=== PATIENT | male | born 1965 | race Caucasian/White ===

== ENCOUNTER 2019-10-01 15:31 | Emergency (ER) | payer OTHER, SELFPAY ==
[2019-10-01 15:46] VITALS: BP 154/87; PULSE 80; RESP 18; TEMP 36.8; O2SAT 96; BMI 23.7
--- NOTE | 2019-10-01 16:25 | PC.NURSE ---
patient states the sensation feels warm
--- NOTE | 2019-10-01 18:03 | ED_ITS ---
HPI - Back Pain/Injury <MATT El - Last Filed: 10/02/19 00:12> General Chief Complaint: Back Pain/Injury Stated Complaint: BACK PAIN Time Seen by Provider: 10/01/19 16:42 Source: patient Mode of arrival: Wheelchair Limitations: no limitations History of Present Illness HPI Narrative: This is a 53-year-old gentleman, smoker, has history of L5 herniated disc who presents to ED with family member with chief complain of nontraumatic left lower back pain radiating to buttock, anterior groin and thigh up to knee. Patient states herniated disc occurred 2 years ago and treated with nonsurgical intervention. Patient states patient was crawling and on his knees and arms and had reached out with right arm when he felt sudden pain on Friday. Patient reports the next 24 hours. Patient got worse and he was evaluated in would be General Emergency room yesterday and treated with Flexeril, Percocet, ibuprofen and discharged to home. Patient states his pain is actually a bit better today and able to bear weight for a very short period due to pain. Patient denies incontinence for stool and urine. Patient denies fever, chills, nausea or vomiting, rash on his back. Patient denies weakness or numbness on legs. Patient reports ambulation with leaning forward and bending/flexing left leg improves pain. He has been leaning towards right side of body to ambulate due to pain. Patient was evaluated by chiropractor today and suggested to get evaluated in [facility] Emergency room. Related Data Home Medications Medication Instructions Recorded Confirmed cyclobenzaprine mg 10/01/19 10/01/19 ibuprofen 10/01/19 10/01/19 oxycodone-acetaminophen 10/01/19 10/01/19 Previous Rx's Medication Instructions Recorded oxycodone-acetaminophen [Percocet] 1 tab PO TID PRN #5 tab 10/01/19 prednisone 40 mg PO DAILY 4 Days tab 10/01/19 Allergies Allergy/AdvReac Type Severity Reaction Status Date / Time Penicillins Allergy Verified 10/01/19 15:46 Review of Systems <MATT El - Last Filed: 10/02/19 00:12> Review of Systems Narrative: General: Denies fever, chills, fatigue, malaise, sweats. HEENT: Denies sinus pain, ear pain, sore throat, difficulty swallowing, dizziness. Respiratory: Denies dyspnea, cough, wheezing, hemoptysis, sputum. Cardiovascular: Denies chest pain, palpitations, orthopnea, edema. Gastrointestinal: Denies nausea, vomiting, abdominal pain, diarrhea, constipation, melena. : Denies dysuria, frequency, incontinence, hematuria, urinary retention. Musculoskeletal: See HPI Skin: Denies rash, skin lesions, or other. Neurologic: Denies weakness, headache, numbness, change in speech, confusion, seizures, incoordination. Psychiatric: No concerning psychosocial issues. 12-point review of systems is negative except for those stated above. Patient History <MATT El - Last Filed: 10/02/19 00:12> Medical History Herniated intervertebral disc of lumbar spine (Acute) Surgical History No pertinent past surgical history (Acute) Social History Smoking Status: Current every day smoker alcohol intake frequency: holidays/special occasions only Substance Use Type: does not use Exam <MATT El - Last Filed: 10/02/19 00:12> Narrative Exam Narrative: General appearance: well developed, well nourished, in no acute distress. Head: normocephalic, atraumatic, no scalp lesions, non-tender. Eye: pupil equal, round. EOMI. Nose: nares patent. Oral: mucosa moist. Neck/Thyroid: neck supple, full range of motion, no visible masses. Skin: no suspicious rashes, lesions over visible areas. Warm and dry. Heart: no clubbing, no cyanosis, no edema. Lungs: Breathing even and unlabored. No stridor. No accessory muscles used. Chest: normal shape and expansion. Abdomen: non-obese, non-distended. Neurologic: alert and oriented. Cognitive exam, ACUTE CARE CERTIFIED NURSING ASSISTANT and PNS grossly intact on informal exam. Psych: good eye contact, normal affect. Initial Vital Signs Initial Vital Signs: Vital Signs Temperature 98.2 F 10/01/19 15:46 Pulse Rate 80 10/01/19 15:46 Respiratory Rate 18 10/01/19 15:46 Blood Pressure 154/87 H 10/01/19 15:46 Pulse Oximetry 96 10/01/19 15:46 Back/Spine/Pelvis Thoracic/Lumbar Spine: thoracic and lumbar spine normal to inspection, No surgical scar(s) present, straight leg raise negative bilaterally, bend over test abnormal, No mass, pain with thoraco-lumbar ROM, No paraspinal tenderness, thoraco-lumbar ROM limited (Secondary to pain), thoraco-lumbar spasm, No thoracic spinal tenderness, No lumbar spinal tenderness and tilt present Sacroiliac Joints: No pain elicited by compression of iliac crest maneuver <Devorah To DO - Last Filed: 10/02/19 07:35> Initial Vital Signs Initial Vital Signs: Vital Signs Temperature 98.2 F 10/01/19 15:46 Pulse Rate 80 10/01/19 15:46 Respiratory Rate 18 10/01/19 15:46 Blood Pressure 154/87 H 10/01/19 15:46 Pulse Oximetry 96 10/01/19 15:46 Scores <MATT El - Last Filed: 10/02/19 00:12> GCS [place] coma scale eye opening: Spontaneous Rugby coma scale verbal response: Orientated Rugby coma scale motor response: Obey commands Joselito coma scale total score: 15 Course <MATT lE - Last Filed: 10/02/19 00:12> Orders Ordered: Discontinued Medications Hydromorphone HCl (Dilaudid) 1 mg IM NOW ONE Stop: 10/01/19 17:56 Last Admin: 10/01/19 18:08 Dose: 1 mg Documented by: JANETH Lidocaine (Lidoderm) 1 each TOP NOW ONE Stop: 10/01/19 17:56 Last Admin: 10/01/19 18:08 Dose: 1 each Documented by: JANETH Prednisone (Deltasone) 40 mg PO NOW ONE Stop: 10/01/19 17:56 Last Admin: 10/01/19 18:08 Dose: 40 mg Documented by: JANETH Vital Signs Vital signs: Vital Signs - 8 hr 10/01/19 19:19 Pulse Rate 74 Blood Pressure [Right Arm] 138/85 Pulse Oximetry 97 <Devorah To DO - Last Filed: 10/02/19 07:35> Orders Ordered: Discontinued Medications Hydromorphone HCl (Dilaudid) 1 mg IM NOW ONE Stop: 10/01/19 17:56 Last Admin: 10/01/19 18:08 Dose: 1 mg Documented by: JANETH Lidocaine (Lidoderm) 1 each TOP NOW ONE Stop: 10/01/19 17:56 Last Admin: 10/01/19 18:08 Dose: 1 each Documented by: JANETH Prednisone (Deltasone) 40 mg PO NOW ONE Stop: 10/01/19 17:56 Last Admin: 10/01/19 18:08 Dose: 40 mg Documented by: JANETH Vital Signs Vital signs: Vital Signs - 8 hr 10/01/19 19:19 Pulse Rate 74 Blood Pressure [Right Arm] 138/85 Pulse Oximetry 97 [facility] - Back Pain/Injury <Paul BoldenMATT Hancock - Last Filed: 10/02/19 00:12> Differential Diagnosis Differential diagnosis: Likely lumbar radiculopathy, sciatica, strain of lumbar region, discitis and other (Herniated lumbar disc) Medical Records Attestation: I reviewed the patient's medical records. Lab Data Attestation: I reviewed the patient's lab results. [facility] Narrative Medical decision making narrative: This is 53-year-old gentleman who has history of herniated L5 disc about 2 years ago and treated with nonsurgical and conservative therapy. Patient complain of nontraumatic left-sided lower aching and tight back pain radiating to buttock and anterior thigh for 3 days and has difficulty with ambulation due to pain. Patient was evaluated and treated y esterday with Percocet, Flexeril, Ibuprofen at [facility] Emergency room and he was seen by chiropractor today and was suggested for an re-evaluated and treatment at [facility] where the chiropractor prefers. Patient and spouse reports pain is better than the yesterday. Patient is on following appointment with his primary care physician next week. Patient does not have incontinence, fever, rash, saddle anesthesia. Patient was medicated with injection Dilaudid 1 mg, lidocaine patch and prednisone and reports pain improved. Patient discharged to home with or short course of prednisone and a few tabs of Percocet. Advised to continue with [id number] Tylenol, Motrin as a primary pain management. Patient advised to follow up with PCP at [facility] as scheduled and consider for imaging test if pain persists. Return precautions were discussed and patient and spouse verbalized understanding and agrees with the treatment plan. Discharge Plan Departure Patient Disposition: Home Clinical Impression: Sciatica Qualifiers: Laterality: left Qualified Code(s): M54.32 - Sciatica, left side Discharge Date/Time: 10/01/19 19:34 Instructions: DI for Sciatica, DI for Back Spasm Activity Restrictions/Additional Instructions: You have been diagnosed with [back pain, sciatica. You were treated with prednisone, Dilaudid, and lidocaine patch while in ED which she you found impro vement in her pain.]. What to do: *Take your medications as directed. Rest her back for acute pain. Please continue with her pain medication regimen. Please take prednisone once a day for 4 days. This may cause GI irritations with Motrin so please take precaution by taking it with food and take omeprazole as needed. Take Tylenol up to 4000 mg in 24 hours period as needed for pain. Use lidocaine patch on affected site on for 12 hours and off for 12 hours. For severe pain, you can take Percocet at you have at home and you're going home with few more tabs. Flexeril is for muscle relaxant. These 2 medications may cause drowsiness so please do not drive, drink alcohol, or operate heavy equipments. You can have constipation from narcotic medications so please take stool softener. *Follow up with your primary care provider on Friday as scheduled for re- evaluation and you may need imaging test. Let them know you were seen in the ED and that we asked you to be seen in follow up. *Return to ED if you have any new, worsening, or concerning symptoms, such as [worsening pain, weakness to her legs, incontinence for stool and urine, fever, tingling/numbness to lower legs or groin, rashes, chest pain, breathing difficulty, unable to tolerate fluids]. Prescriptions: New prednisone 20 mg tablet 40 mg PO DAILY 4 Days RF: 0 oxycodone-acetaminophen [Percocet] 5-325 mg tablet 1 tab PO TID PRN (Reason: pain) Qty: 5 RF: 0 No Action cyclobenzaprine 10 mg tablet RF: 0 oxycodone-acetaminophen 5-325 mg tablet RF: 0 ibuprofen 600 mg tablet RF: 0 Referrals: [facility] Santizo [facility] [Provider Group]
[2019-10-01] MEDS: LIDOCAINE PATCH 1 EACH ADH..PATCH TOP (18:08)
[2019-10-01] MEDS: predniSONE 20 MG TABLET 40 MG PO (18:08)
[2019-10-01] MEDS: HYDROMORPHONE 1 MG INJ IM (18:08)
[2019-10-01 19:19] VITALS: BP 138/85; PULSE 74; O2SAT 97
== END 2019-10-01 19:34 | disposition home or self-care (01) ==
PROVIDERS: Emergency Provider Nurse Practitioner Family
DX: M54.32 Sciatica, left side (principal)
CPT/HCPCS: 96372; 99282; 99283; J1170